=== PATIENT | female | born 1980 | race Caucasian/White ===

== ENCOUNTER → 2021-10-31 | Day surgery (SDC) | payer OTHER ==
[~2021-10-31] VITALS: Ht 162.6 cm; Wt 120.2 kg
[~2021-10-31] MED LIST: ABILIFY10 MG PO; HYDROCHLOROTHIA25 MG PO; HYDROCODON-ACE1 EAC2 PO; LEVETIRACETAM750 MG PO; MIRTAZAPINE15 MG PO; NORGESTIMATE-E1 EACH PO; NURTEC ODT75 MG PO; OXCARBAZEPINE300 MG PO; PROPRANOLOL HCL80 M1 PO
[2021-10-31 10:24] LABS: HEMOGLOBIN 13.1 gm/dl (12.3-15.3); RED BLOOD COUNT 4.54 M/UL (4.00-5.10); WHITE BLOOD COUNT 10.6 K/UL (4.5-11.0)
[2021-10-31 10:54] LABS: BUN/CREATININE RATIO 21 (0-10)
== END | disposition home or self-care (01) ==
LOC: OR 09:35
PROVIDERS: Orthopaedic Surgery
DX: S82.842A Displaced bimalleolar fracture of left lower leg, initial encounter for closed fracture (principal); G40.909 Epilepsy, unspecified, not intractable, without status epilepticus; E66.01 Morbid (severe) obesity due to excess calories; Z88.8 Allergy status to other drugs, medicaments and biological substances; Z79.899 Other long term (current) drug therapy; Z90.49 Acquired absence of other specified parts of digestive tract; Z82.49 Family history of ischemic heart disease and other diseases of the circulatory system; Z82.0 Family history of epilepsy and other diseases of the nervous system; W19.XXXA Unspecified fall, initial encounter; Y92.009 Unspecified place in unspecified non-institutional (private) residence as the place of occurrence of the external cause
CPT/HCPCS: 36415; 73610; 76000; 80048; 84703; 85025; C1713; J0690; J1100; J1170; J1885; J2250; J2405; J2704; J2795; J3010; J7120

== ENCOUNTER 2021-11-16 10:38 | Day surgery (SDC) | payer OTHER ==
[~2021-11-16] VITALS: Ht 162.6 cm; Wt 120.2 kg
[2021-11-16 11:14] LABS: HEMOGLOBIN 12.5 gm/dl (12.3-15.3); RED BLOOD COUNT 4.47 M/UL (4.00-5.10)
[2021-11-16 11:36] LABS: BUN/CREATININE RATIO 21 (0-10)
[2021-11-16] MEDS ORDERED: HYDROCODON-ACE1 EAC2 PO (18:30)
[2021-11-17] MEDS ORDERED: IBUPROFEN200 MG PO (09:06)
[2021-11-17] MEDS ORDERED: MULTI-VITAMIN1 EACH PO (09:06)
[2021-11-18 11:01] LABS: HEMOGLOBIN 11.5 gm/dl (12.3-15.3); RED BLOOD COUNT 4.03 M/UL (4.00-5.10); WHITE BLOOD COUNT 10.2 K/UL (4.5-11.0)
[2021-11-18 11:29] LABS: BUN/CREATININE RATIO 22 (0-10)
[2021-11-18] MEDS ORDERED: CEPHALEXIN500 MG PO (12:49)
[2021-11-18] MEDS ORDERED: ASPIRIN EC81 MG PO (12:50)
== END 2021-11-18 13:15 | disposition home or self-care (01) ==
LOC: OR 10:38 → M/S 10:38 → OR 14:00 → M/S 18:19 → OR 11-18 13:15
PROVIDERS: Internal Medicine Infectious Disease; Orthopaedic Surgery
DX: T84.117A Breakdown (mechanical) of internal fixation device of bone of left lower leg, initial encounter (principal); G40.909 Epilepsy, unspecified, not intractable, without status epilepticus; U07.1 COVID-19; Y79.2 Prosthetic and other implants, materials and accessory orthopedic devices associated with adverse incidents; Y83.8 Other surgical procedures as the cause of abnormal reaction of the patient, or of later complication, without mention of misadventure at the time of the procedure; E66.01 Morbid (severe) obesity due to excess calories; Z68.41 Body mass index [BMI] 40.0-44.9, adult; Z88.8 Allergy status to other drugs, medicaments and biological substances; Z90.49 Acquired absence of other specified parts of digestive tract; Z98.890 Other specified postprocedural states
CPT/HCPCS: 36415; 71045; 73590; 76000; 80048; 80053; 84703; 85025; 87070; 87205; 97162; 97166; 97535; C1713; J0171; J0690; J1100; J1170; J2001; J2250; J2405; J2704; J2795; J3010; J7120; U0002

== ENCOUNTER → 2022-02-09 | Outpatient (CLI) | payer OTHER ==
[~2022-02-09] MED LIST changes: +ASPIRIN EC81 MG PO; +CEPHALEXIN500 MG PO; +IBUPROFEN200 MG PO; +INDERAL XL80 MG PO; +KEPPRA750 MG PO; +MULTI-VITAMIN1 EACH PO; +REMERON15 MG PO; +TRI-ESTARYLLA1 EACH PO; +TRILEPTAL300 MG PO
[2022-02-09 11:28] LABS: HEMOGLOBIN 13.1 gm/dl (12.3-15.3); RED BLOOD COUNT 4.67 M/UL (4.00-5.10); WHITE BLOOD COUNT 7.7 K/UL (4.5-11.0)
[2022-02-09 11:53] LABS: BUN/CREATININE RATIO 15 (0-10)
== END ==
LOC: OPSV2 10:00
PROVIDERS: Orthopaedic Surgery
DX: Z01.818 Encounter for other preprocedural examination (principal); R91.8 Other nonspecific abnormal finding of lung field; S82.842A Displaced bimalleolar fracture of left lower leg, initial encounter for closed fracture
CPT/HCPCS: 36415; 71046; 80048; 85027; 93005

== ENCOUNTER → 2022-02-15 | Day surgery (SDC) | payer OTHER ==
[2022-02-15 08:52] LABS: BUN/CREATININE RATIO 18 (0-10)
== END | disposition home or self-care (01) ==
LOC: OR 07:48
PROVIDERS: Orthopaedic Surgery
DX: Z47.2 Encounter for removal of internal fixation device (principal); G40.909 Epilepsy, unspecified, not intractable, without status epilepticus; E66.01 Morbid (severe) obesity due to excess calories; Z88.8 Allergy status to other drugs, medicaments and biological substances; Z79.899 Other long term (current) drug therapy
CPT/HCPCS: 71045; 73610; 76000; 80048; 84703; J0690; J1100; J1170; J2250; J2405; J2704; J3010; J7030; J7120